=== PATIENT | male | born 2000 | race Caucasian/White ===

== ENCOUNTER → 2020-02-04 | Outpatient (CLI) | payer BC, OTHER ==
--- NOTE | 2020-02-04 16:07 | EKG ---
[facility] [place] [address] ELECTROCARDIOGRAM REPORT Name: PAYAM MONTANEZ Room #: REG [facility] M..#: [id number] Admission: 02/04/20 Attend Phys: Arabella Paulson MD Discharge: Date of : 89 Report #: [id number] THIS REPORT FOR: cc: Arabella Paulson MD, Ellen S. MD Santiago, Patrick MD [facility] ~ THIS REPORT FOR: //name// [facility] Test Date: 2020-02-04 Test Time: 14:53:16 Pat Name: PAYAM MONTANEZ Department: Room: Gender: [employer] Agent: Vazquez MERCER : 2000 Requested By: Arabella Paulson Order Number: [id number] MD: Fabio Pérez Measurements Intervals [place] Rate: 82 P: 90 ND: 170 QRS: 96 QRSD: 89 T: 61 QT: 359 QTc: 420 Interpretive Statements Sinus rhythm Borderline right axis deviation No previous ECG available for comparison Electronically Signed On 02-04-2020 16:07:28 CDT by Fabio Pérez [email or web address] <ELECTRONICALLY SIGNED> By: Fabio Pérez MD, FACC 02/04/20 1607 1453 1453 Fabio Pérez MD, [facility] /EPI
== END ==
LOC: CV 14:32
PROVIDERS: ATTEND Pediatrics
DX: R94.31 Abnormal electrocardiogram [ECG] [EKG] (principal); I49.9 Cardiac arrhythmia, unspecified